=== PATIENT | female | born 1970 | race African-American/Black ===

== ENCOUNTER 2017-01-03 11:09 | Day surgery (SDC) | payer OTHER ==
[~2017-01-03] VITALS: Ht 167.6 cm; Wt 110.2 kg
[~2017-01-03 11:09] MED LIST: HUMALOG KW200 UNIT/1 SC; LANTUS 3 M100 UNITS1 SC; LINZESS145 MCG PO; LIPITOR20 MG PO; NEXIUM 24HR20 M1 PO; PERCOCET 7.51 TABLET PO; PROAIR HFA8.5 GM IH; PROTONIX40 MG PO; REQUIP2 MG PO; SINGULAIR10 MG PO; SPIRIVA1 INHALATI IH; ZANAFLEX4 MG PO; ZESTRIL5 MG PO
[2017-01-03 11:57] LABS: POINT-OF-CARE METER ID UU13113694
== END 2017-01-03 13:52 | disposition home or self-care (01) ==
LOC: PAIN 11:09 → SDC 11:45 → PAIN 11:45
PROVIDERS: Anesthesiology Pain Medicine
DX: M47.816 Spondylosis without myelopathy or radiculopathy, lumbar region (principal); M54.5 Low back pain; M51.36 Other intervertebral disc degeneration, lumbar region; M48.06 Spinal stenosis, lumbar region; M47.812 Spondylosis without myelopathy or radiculopathy, cervical region; E11.43 Type 2 diabetes mellitus with diabetic autonomic (poly)neuropathy; K31.84 Gastroparesis; E11.40 Type 2 diabetes mellitus with diabetic neuropathy, unspecified; E78.5 Hyperlipidemia, unspecified; G47.30 Sleep apnea, unspecified; K21.9 Gastro-esophageal reflux disease without esophagitis; I10 Essential (primary) hypertension; E66.01 Morbid (severe) obesity due to excess calories; Z68.39 Body mass index [BMI] 39.0-39.9, adult; Z79.4 Long term (current) use of insulin
CPT/HCPCS: 82948; 93005; J0360; J1030; J2250; J3010; S0020

== ENCOUNTER 2017-01-10 10:48 | Day surgery (SDC) | payer OTHER ==
[~2017-01-10] VITALS: Ht 195.6 cm; Wt 110.2 kg
[2017-01-10 11:41] LABS: POINT-OF-CARE METER ID UU13113694
== END 2017-01-10 12:50 | disposition home or self-care (01) ==
LOC: PAIN 10:48 → SDC 11:45 → PAIN 12:50
PROVIDERS: Anesthesiology Pain Medicine
DX: M47.816 Spondylosis without myelopathy or radiculopathy, lumbar region (principal); M54.5 Low back pain; M47.812 Spondylosis without myelopathy or radiculopathy, cervical region; M48.06 Spinal stenosis, lumbar region; I10 Essential (primary) hypertension; E11.42 Type 2 diabetes mellitus with diabetic polyneuropathy; J45.909 Unspecified asthma, uncomplicated; E78.5 Hyperlipidemia, unspecified; K21.9 Gastro-esophageal reflux disease without esophagitis; G47.30 Sleep apnea, unspecified; E66.9 Obesity, unspecified; Z68.28 Body mass index [BMI] 28.0-28.9, adult; Z79.891 Long term (current) use of opiate analgesic; Z79.4 Long term (current) use of insulin
CPT/HCPCS: 82948; J1030; J2250; J3010; S0020

== ENCOUNTER 2018-02-15 10:04 | Day surgery (SDC) | payer MEDICARE ==
[~2018-02-15] VITALS: Ht 167.6 cm; Wt 99.3 kg
[~2018-02-15 10:04] MED LIST changes: +BUTRANS1 EAC4 TD; +OXCARBAZEPINE150 MG PO; +REGLAN5 MG PO; +TOUJEO MAX300 UNIT/1 SC; +TRILEPTAL300 MG PO; +WELLBUTRIN SR150 MG PO; +ZESTRIL40 MG PO
== END 2018-02-15 11:51 | disposition home or self-care (01) ==
LOC: PAIN 10:04 → SDC 10:30 → PAIN 10:30
PROVIDERS: Anesthesiology Pain Medicine
PROC: 3E0U3BZ Introduction of Anesthetic Agent into Joints, Percutaneous Approach (ICD-10-PCS; principal; 2018-02-15)
PROC: BR141ZZ Fluoroscopy of Cervical Facet Joint(s) using Low Osmolar Contrast (ICD-10-PCS; principal; 2018-02-15)
PROC: 3E0U33Z Introduction of Anti-inflammatory into Joints, Percutaneous Approach (ICD-10-PCS; principal; 2018-02-15)
DX: M46.1 Sacroiliitis, not elsewhere classified (principal); M47.816 Spondylosis without myelopathy or radiculopathy, lumbar region; M79.1 Myalgia; G89.29 Other chronic pain; E11.40 Type 2 diabetes mellitus with diabetic neuropathy, unspecified; Z79.4 Long term (current) use of insulin; Z91.040 Latex allergy status; Z88.8 Allergy status to other drugs, medicaments and biological substances
CPT/HCPCS: 82948; J1030; J1885; J2250; J3010; S0020